=== PATIENT | male | born 1955 | race Two or more races ===

== ENCOUNTER 2019-06-12 11:27 | Emergency (ER) | payer BC ==
[~2019-06-12] VITALS: Ht 190.5 cm; Wt 76.0 kg
[2019-06-12] MEDS ORDERED: HYDROcodone/acetaminophen 5mg/325mg tablet PO ONE ×3 (12:25→14:25)
[2019-06-12] MEDS ORDERED: ondansetron 4mg rapidly disintigrating tab PO ONE (12:25)
[2019-06-12] MEDS ORDERED: normal saline 1000ml 1,000 ML IV ONE ×2 (12:35→13:20)
[2019-06-12] MEDS ORDERED: ondansetron/PF 4mg/2ml inj IV ONE (12:35)
--- NOTE | 2019-06-12 13:06 | NUR ---
pt ultrasound in process standing outside.
--- NOTE | 2019-06-12 13:11 | NUR ---
spoke to oneida from pharmacy and informe dher that dr farrar said he will order iv but he only ordered iv zofran not iv pain meds sergio i had returned the norco earlier but now i have to medicate the pt with pain med as per pharmacist new order of norco has to be order in order to give med to the pt.
[2019-06-12 13:56] LABS: CLARITY,URINE SLIGHTLY CLOUDY (Clear); COLOR,URINE YELLOW (Yellow); GLUCOSE, URINE NEGATIVE (Neg); KETONES,URINE 15 mg/dl (Neg); LEUKOCYTE ESTERASE ,URINE NEGATIVE (Neg); NITRITES, URINE NEGATIVE (Neg); OCCULT BLOOD,URINE MODERATE (Neg); PH,URINE 5.5 (4.8-8.0); PROTEIN,URINE >=300 mg/dl (Neg); UROBILINOGEN,URINE 0.2 E.U/dL (0.2-1.0)
[2019-06-12 14:16] LABS: UA COLLECTION TYPE VOIDED
[2019-06-12 14:24] LABS: SPERM FEW /HPF (NEGATIVE)
[2019-06-12 14:25] LABS: BACTERIA,URINE 1+ /HPF (Neg); WBC,URINE 0-4 /HPF (0-4)
[2019-06-12 14:26] LABS: SQUAMOUS EPITHELIAL CELL,UR FEW /LPF (FEW)
[2019-06-12] MEDS ORDERED: ONDA8TAB6 PO (14:48)
[2019-06-12] MEDS ORDERED: SULF1TAB49 PO (14:48)
[2019-06-12] MEDS ORDERED: FLO0.4C PO (14:48)
[2019-06-12] MEDS ORDERED: proCHLORperazine 10 MG/2 ml inj IV ONE (14:50)
[2019-06-12 15:11] VITALS: BP 162/98
[2019-06-12] MEDS ORDERED: HYDR-3965 PO (15:15)
== END 2019-06-12 15:12 | disposition home or self-care (01) ==
LOC: ER 11:28
DX: N50.811 Right testicular pain (principal); N50.812 Left testicular pain; R11.2 Nausea with vomiting, unspecified; R31.9 Hematuria, unspecified; Z98.890 Other specified postprocedural states; Z79.2 Long term (current) use of antibiotics; Z79.899 Other long term (current) drug therapy
CPT/HCPCS: 76870; 81001; 96361; 96374; 96375; 99284; J0780; J2405; J7030

== ENCOUNTER 2019-11-20 13:48 | Day surgery (SDC) | payer BC ==
[2019-11-20] VITALS (13 sets, daily range): BP systolic 114–155; BP diastolic 68–88
[~2019-11-20] VITALS: Ht 185.4 cm; Wt 102.1 kg
[~2019-11-20 13:48] MED LIST: ASCO-134 PO; BACDS PO; CALC-97 PO; GABA-532 PO; HYDR-4383 PO; LEVO125T PO; METF1000 PO; MORP-92 PO; MORP15TA PO; MULT-1085 PO; ONDA4TAB12 PO; PRE5T PO; ceFAZolin 2gm in dextrose, iso 50 ML IV ONE; famotidine 20mg tablet PO ONE; ringers solution, lacted 1,000 ML IV SCH
[2019-11-20] MEDS ORDERED: LIDOcaine 1% (10mg/ml) 2ml vial ONE (14:56)
[2019-11-20] MEDS ORDERED: fentaNYL/PF 50MCG/1 ML 2ML syringe IV PRN ×2 (15:20)
[2019-11-20] MEDS ORDERED: ringers solution, lacted 1,000 ML IV SCH (15:20)
[2019-11-20] MEDS ORDERED: morphine 2 MG/ML inj. syringe IV PRN (15:20)
[2019-11-20] MEDS ORDERED: hydrALAZINE 20mg/ml inj. IV PRN (15:20)
[2019-11-20] MEDS ORDERED: ondansetron/PF 4mg/2ml inj IV PRN (15:20)
[2019-11-20] MEDS ORDERED: labetalol 20mg/4ml (5mg/ml) syringe IV PRN (15:20)
[2019-11-20 15:44] LABS: BASOPHILS # (AUTO) 0.1 X10'3 (0-0.2); BASOPHILS % (AUTO) 0.9 % (0-1); EOSINOPHILS # (AUTO) 0.6 X10'3 (0-0.9); EOSINOPHILS % (AUTO) 7.9 % (0-6); LYMPHOCYTES # (AUTO) 0.6 X10'3 (1.1-4.8); LYMPHOCYTES % (AUTO) 8.1 % (21-51); MEAN CORPUSCULAR HEMOGLOBIN 28.8 PG (27.0-31.0); MEAN CORPUSCULAR HGB CONC 32.2 g/dL (33.0-36.5); MEAN CORPUSCULAR VOLUME 89.4 FL (78-98); MEAN PLATELET VOLUME 6.7 FL (7.4-10.4); MONOCYTES # (AUTO) 0.6 X10'3 (0-0.9); MONOCYTES % (AUTO) 8.2 % (2-12); NEUTROPHILS # (AUTO) 5.6 X10'3 (1.8-7.7); NEUTROPHILS % (AUTO) 74.9 % (42-75); PRE OP HEMATOCRIT 31.7 % (42.0-52.0); PRE OP PLATELET COUNT 407 X10'3 (140-440); RED BLOOD COUNT 3.54 X10'6 (4.70-6.10); RED CELL DISTRIBUTION WIDTH 15.1 % (11.5-14.5)
[2019-11-20 15:47] LABS: PRE OP HEMOGLOBIN 10.2 g/dL (14.0-17.9)
[2019-11-20 15:54] LABS: ALBUMIN 3.5 G/DL (3.4-5.0); ALBUMIN/GLOBULIN RATIO 0.9 (1.1-1.5); ALKALINE PHOSPHATASE 155 IU/L (46-116); BLOOD UREA NITROGEN 15 MG/DL (7-18); BUN/CREATININE RATIO 15.3 (5.4-32.0); CALCIUM 8.4 MG/DL (8.5-10.1); CHLORIDE 104 MMOL/L (99-107); CREATININE 0.98 MG/DL (0.60-1.10); PRE OP ALT 32 U/L (30-65); PRE OP ANION GAP 7 (8-16); PRE OP AST 15 U/L (10-37); PRE OP BILIRUB, TOTAL 0.2 MG/DL (0.0-1.0); PRE OP GLUCOSE 117 MG/DL (70-104); PRE OP POTASSIUM 5.1 MMOL/L (3.4-5.1); PRE OP SODIUM 137 MMOL/L (135-145); TOTAL CARBON DIOXIDE 25.6 MMOL/L (24-32); TOTAL PROTEIN 7.5 G/DL (6.4-8.2); eGFR 78 ML/MIN
[2019-11-20] MEDS ORDERED: fentaNYL/PF 50MCG/1 ML 2ML syringe ONE (16:46)
[2019-11-20] MEDS ORDERED: midazolam 2 mg/2 ml injection ONE (16:46)
[2019-11-20] MEDS ORDERED: propofol inj 20 ML IV ONE (16:47)
[2019-11-20] MEDS ORDERED: ondansetron/PF 4mg/2ml inj ONE (16:47)
[2019-11-20] MEDS ORDERED: LIDOcaine 2% (20mg/ml) 5ml vial ONE (16:47)
[2019-11-20] MEDS ORDERED: sevoflurane 250ml liquid IH ONE (16:53)
[2019-11-20] MEDS ORDERED: dexamethasone sod phosphate 10mg/ml inj ONE (16:53)
--- NOTE | 2019-11-20 17:39 | NUR ---
Received from OR via [facility], accompanied by Anesthesiologist DR MEDEL and report given by Anesthesiologist. PT DROWSY, PAINFUL, LEFT THIGH W/WOUND VAC TO 125MMHG LCS INTACT, NO DRAINAGE, LARGE BLACK FOAM PACKING. Addendum: 11/20/19 at 1812 by Emmy Croft RN Amended: Links added.
[2019-11-20] MEDS: morphine 4 MG/ML inj SYRINge IV PRN ×2 (17:47→18:02)
[2019-11-20] MEDS ORDERED: HYDROcodone/acetaminophen 5mg/325mg tablet PO ONE (18:50)
--- NOTE | 2019-11-20 19:59 | NUR ---
D/C INSTRUCTIONS GIVEN AND GONE OVER W/PT AND PTS WHOM VERBALIZE UNDERSTANDING, PT D/CD TO HOME W/WOUND VAC SUPPLIES VIA W/C TO PRIVATE VEHICLE W/O INCIDENT. Addendum: 11/20/19 at 2035 by Emmy Croft RN Amended: Links added.
== END 2019-11-20 19:59 | disposition home or self-care (01) ==
LOC: PAS 13:48
PROVIDERS: ATTEND Surgery
DX: L02.416 Cutaneous abscess of left lower limb (principal); E11.9 Type 2 diabetes mellitus without complications; Z85.46 Personal history of malignant neoplasm of prostate; Z98.890 Other specified postprocedural states; Z79.899 Other long term (current) drug therapy; F12.90 Cannabis use, unspecified, uncomplicated; Z79.891 Long term (current) use of opiate analgesic; Z79.84 Long term (current) use of oral hypoglycemic drugs; F17.290 Nicotine dependence, other tobacco product, uncomplicated; F14.90 Cocaine use, unspecified, uncomplicated; F15.90 Other stimulant use, unspecified, uncomplicated
CPT/HCPCS: 27301; 36415; 80053; 85025; 93005; J1100; J2001; J2250; J2270; J2405; J2704; J3010; J7120; A4618; A6550; A7000